=== PATIENT | female | born 1950 | race Caucasian/White ===

== ENCOUNTER 2019-04-12 12:43 | Outpatient (CLI) | payer OTHER ==
[~2019-04-12 12:43] MED LIST: DOCU-144 PO; ENAL10TA75 PO; OMEP40CA PO
== END 2019-04-13 20:17 | disposition home or self-care (01) ==
LOC: SRD 12:43
PROVIDERS: ATTEND Family Medicine
DX: R06.02 Shortness of breath (principal); I70.90 Unspecified atherosclerosis; R42 Dizziness and giddiness
CPT/HCPCS: 71046-TC

== ENCOUNTER 2020-09-20 09:34 | Outpatient (CLI) | payer OTHER ==
[2020-09-20 10:05] LABS: BILIRUBIN,URINE NEGATIVE (NEGATIVE); CLARITY/URINE CLEAR (CLEAR); COLOR,URINE YELLOW (YELLOW); GLUCOSE,URINE 2+ (NEGATIVE); KETONES,URINE NEGATIVE (NEGATIVE); LEUKOCYTE ESTERASE ,URINE NEGATIVE (NEGATIVE); NITRITE, URINE NEGATIVE (NEGATIVE); PH,URINE 5.5 (5.0-8.0); PROTEIN URINE NEGATIVE (NEGATIVE); UROBILINOGEN,URINE 0.2 (0.2-1.0)
[2020-09-20 10:07] LABS: BLOOD, URINE TRACE (NEGATIVE)
[2020-09-20 10:08] LABS: BASOPHILS # (AUTO) 0.1 K/uL (0.0-0.2); BASOPHILS % (AUTO) 0.7 % (0.0-2.0); EOSINOPHILS # (AUTO) 0.4 K/uL (0.0-0.4); EOSINOPHILS % (AUTO) 4.5 % (0.0-4.0); HEMATOCRIT 39.7 % (36-48); HEMOGLOBIN 13.5 g/dL (12.0-16.0); LYMPHOCYTES # (AUTO) 1.9 K/uL (1.0-5.5); MEAN CORPUSCULAR HEMOGLOBIN 32 pg (27-31); MEAN CORPUSCULAR HGB CONC 34 % (32-36); MEAN CORPUSCULAR VOLUME 94 fL (79.0-98.0); MONOCYTES # (AUTO) 0.5 K/uL (0.0-1.0); MONOCYTES % (AUTO) 6.4 % (1.7-9.3); NEUTROPHILS # (AUTO) 5.7 K/uL (1.8-7.7); NEUTROPHILS % (AUTO) 66.4 % (40.0-70.0); PLATELET COUNT (AUTO) 269 K/uL (130-430); RED BLOOD CELL COUNT(AUTO) 4.25 MIL/uL (4.2-6.2); RED CELL DISTRIBUTION WIDTH 13.9 % (9.0-15.0); WHITE BLOOD COUNT (AUTO) 8.6 K/uL (4.8-10.8)
[2020-09-20 10:36] LABS: BACTERIA,URINE FEW /HPF (None Seen); WBC,URINE 0-3 /HPF (0-3)
[2020-09-20 10:46] LABS: ALBUMIN 3.3 g/dL (3.4-4.8); CALCIUM 8.9 mg/dL (8.4-11.0); CREATININE 1.09 mg/dL (0.55-1.30); FREE T4 (FREE THYROXINE) 0.7 ng/dL (0.6-1.6); POTASSIUM 4.4 mmol/L (3.5-5.1); THYROID STIMULATING HORMONE 2.47 uIu/mL (0.34-4.82)
[2020-09-21 22:26] LABS: BILIRUBIN,URINE NEGATIVE (NEGATIVE); BLOOD, URINE NEGATIVE (NEGATIVE); CLARITY/URINE CLEAR (CLEAR); COLOR,URINE YELLOW (YELLOW); GLUCOSE,URINE 3+ (NEGATIVE); KETONES,URINE NEGATIVE (NEGATIVE); LEUKOCYTE ESTERASE ,URINE NEGATIVE (NEGATIVE); NITRITE, URINE NEGATIVE (NEGATIVE); PROTEIN URINE NEGATIVE (NEGATIVE); UROBILINOGEN,URINE 0.2 (0.2-1.0)
== END 2020-09-20 19:51 | disposition home or self-care (01) ==
LOC: SLB 09:34
PROVIDERS: ATTEND Family Medicine
DX: Z12.11 Encounter for screening for malignant neoplasm of colon (principal); Z00.00 Encounter for general adult medical examination without abnormal findings
CPT/HCPCS: 36415; 80053; 80061; 81000; 81003; 82272; 83036; 84439; 84443; 85025

== ENCOUNTER 2020-12-21 07:00 | Outpatient (CLI) | payer OTHER ==
[2020-12-21 06:21] LABS: BILIRUBIN,URINE NEGATIVE (NEGATIVE); BLOOD, URINE NEGATIVE (NEGATIVE); CLARITY/URINE CLEAR (CLEAR); COLOR,URINE YELLOW (YELLOW); GLUCOSE,URINE 3+ (NEGATIVE); KETONES,URINE NEGATIVE (NEGATIVE); LEUKOCYTE ESTERASE ,URINE NEGATIVE (NEGATIVE); NITRITE, URINE NEGATIVE (NEGATIVE); PROTEIN URINE NEGATIVE (NEGATIVE); UROBILINOGEN,URINE 0.2 (0.2-1.0)
[2020-12-21 08:02] LABS: ALBUMIN 3.7 g/dL (3.4-4.8); CALCIUM 9.5 mg/dL (8.4-11.0); CREATININE 1.21 mg/dL (0.55-1.30); TOTAL BILIRUBIN 0.5 mg/dL (0.0-1.0)
== END 2020-12-21 22:00 | disposition home or self-care (01) ==
LOC: SLB 07:00
PROVIDERS: ATTEND Family Medicine
DX: E11.9 Type 2 diabetes mellitus without complications (principal)
CPT/HCPCS: 36415; 80053; 80061; 81003; 82043; 82570; 83036

== ENCOUNTER → 2021-04-16 | Outpatient (CLI) | payer OTHER ==
[2021-04-17 07:40] LABS: BILIRUBIN,URINE NEGATIVE (NEGATIVE); BLOOD, URINE NEGATIVE (NEGATIVE); CLARITY/URINE CLEAR (CLEAR); COLOR,URINE YELLOW (YELLOW); GLUCOSE,URINE 2+ (NEGATIVE); KETONES,URINE NEGATIVE (NEGATIVE); LEUKOCYTE ESTERASE ,URINE 2+ (NEGATIVE); NITRITE, URINE NEGATIVE (NEGATIVE); PROTEIN URINE NEGATIVE (NEGATIVE); UROBILINOGEN,URINE 0.2 (0.2-1.0)
[2021-04-17 08:06] LABS: ALBUMIN 3.3 g/dL (3.4-4.8); CALCIUM 9.1 mg/dL (8.4-11.0); CREATININE 1.23 mg/dL (0.55-1.30); POTASSIUM 4.4 mmol/L (3.5-5.1); TOTAL BILIRUBIN 0.6 mg/dL (0.0-1.0)
[2021-04-17 09:21] LABS: BACTERIA,URINE FEW /HPF (None Seen); MUCUS,URINE 1+ /LPF (None Seen); RBC,URINE 0-3 /HPF (0-3)
== END | disposition home or self-care (01) ==
LOC: SLB 20:37
PROVIDERS: ATTEND Family Medicine
DX: E11.9 Type 2 diabetes mellitus without complications (principal)
CPT/HCPCS: 36415; 80053; 80061; 81000; 82043; 82570; 83036

== ENCOUNTER 2021-07-22 08:35 | Outpatient (CLI) | payer OTHER ==
[2021-07-22 10:09] LABS: BILIRUBIN,URINE NEGATIVE (NEGATIVE); BLOOD, URINE NEGATIVE (NEGATIVE); CLARITY/URINE CLEAR (CLEAR); COLOR,URINE YELLOW (YELLOW); GLUCOSE,URINE 3+ (NEGATIVE); KETONES,URINE NEGATIVE (NEGATIVE); LEUKOCYTE ESTERASE ,URINE 1+ (NEGATIVE); NITRITE, URINE NEGATIVE (NEGATIVE); PH,URINE 5.5 (5.0-8.0); PROTEIN URINE NEGATIVE (NEGATIVE); UROBILINOGEN,URINE 0.2 (0.2-1.0)
[2021-07-22 10:18] LABS: ALBUMIN 3.5 g/dL (3.4-4.8); CALCIUM 8.7 mg/dL (8.4-11.0); CREATININE 1.11 mg/dL (0.55-1.30); POTASSIUM 3.6 mmol/L (3.5-5.1)
[2021-07-22 11:07] LABS: RBC,URINE 0-3 /HPF (0-3)
[2021-07-22 11:08] LABS: BACTERIA,URINE FEW /HPF (None Seen); MUCUS,URINE 1+ /LPF (None Seen)
== END 2021-07-22 20:34 | disposition home or self-care (01) ==
LOC: SLB 08:35
PROVIDERS: ATTEND Family Medicine
DX: E11.9 Type 2 diabetes mellitus without complications (principal)
CPT/HCPCS: 36415; 80053; 80061; 81000; 82043; 82570; 83036

== ENCOUNTER → 2022-02-28 | Day surgery (SDC) | payer OTHER ==
[~2022-02-28] VITALS: Ht 170.2 cm; Wt 120.7 kg
[~2022-02-28] MED LIST changes: +*HEPARIN PER PHARMACY XX ONE; +BUPIVACAINE /EPINEPHRINE/PF 0.5% 30 ML VIAL INJ ONE; +HYDROmorphone 1 MG/ML INJ. CARTRIDGE IVP PRN; +LABETALOL 100 MG/ 20ML VIAL IVP PRN; +LIDOCAINE 1% 10 MG/ML, 20 ML MDV ONE; +LR 1,000 ML IV.SOLN IV ONE; +LR 500 ML IV ONE; +MEPERIDINE HCL/PF 25 MG/ML DISP.SYRIN IVP PRN; +METOCLOPRAMIDE HCL 10 MG/2 ML VIAL IVP PRN; +MIDAZOLAM HCL 5 MG/ML VIAL (VERSED) IV ONE; +NS 100 ML BAG ONE; +NS IRRIG SOLN 1000 ML IR ONE; +ceFAZolin SODIUM 1 GM VIAL ONE; +ceFAZolin SODIUM 2 GM in D5W 100 ML IV ONE; +ceFAZolin SODIUM 2 GM in D5W 50 ML IV ONE; +fentaNYL CITRATE 250 MCG/5 ML AMP ONE; +hydrALAZINE HCL 20 MG/ML VIAL IVP PRN
[2022-02-28 12:30] VITALS: BP_SYST 172
== END | disposition home or self-care (01) ==
LOC: SDS 08:17
PROVIDERS: ATTEND Surgery
DX: C50.911 Malignant neoplasm of unspecified site of right female breast (principal); C50.112 Malignant neoplasm of central portion of left female breast; I10 Essential (primary) hypertension; E11.9 Type 2 diabetes mellitus without complications; E78.5 Hyperlipidemia, unspecified; Z88.1 Allergy status to other antibiotic agents; Z88.5 Allergy status to narcotic agent; Z96.659 Presence of unspecified artificial knee joint; Z79.899 Other long term (current) drug therapy; Z20.822 Contact with and (suspected) exposure to COVID-19
CPT/HCPCS: 36561; 82962; 36415; 77001; 87426; 71045; J3490; J0690; J2001; J2250; J3010; J7060; J7120; C1788; 76000

== ENCOUNTER 2022-05-22 12:40 | Inpatient (IN) | payer OTHER ==
[~2022-05-22] VITALS: Ht 172.7 cm; Wt 119.3 kg
[~2022-05-22 12:40] MED LIST changes: -*HEPARIN PER PHARMACY XX ONE; -BUPIVACAINE /EPINEPHRINE/PF 0.5% 30 ML VIAL INJ ONE; -HYDROmorphone 1 MG/ML INJ. CARTRIDGE IVP PRN; -LABETALOL 100 MG/ 20ML VIAL IVP PRN; -LIDOCAINE 1% 10 MG/ML, 20 ML MDV ONE; -LR 1,000 ML IV.SOLN IV ONE; -LR 500 ML IV ONE; -MEPERIDINE HCL/PF 25 MG/ML DISP.SYRIN IVP PRN; -METOCLOPRAMIDE HCL 10 MG/2 ML VIAL IVP PRN; -MIDAZOLAM HCL 5 MG/ML VIAL (VERSED) IV ONE; -NS 100 ML BAG ONE; -NS IRRIG SOLN 1000 ML IR ONE; -ceFAZolin SODIUM 1 GM VIAL ONE; -ceFAZolin SODIUM 2 GM in D5W 100 ML IV ONE; -ceFAZolin SODIUM 2 GM in D5W 50 ML IV ONE; -fentaNYL CITRATE 250 MCG/5 ML AMP ONE; -hydrALAZINE HCL 20 MG/ML VIAL IVP PRN
[2022-05-22 15:45] VITALS: BP_SYST 113
--- NOTE | 2022-05-22 15:45 | NUR ---
Admission note: patient is awake alert x4. Picked up in the main lobby and transferred via wheelchair. No pain or discomfort at this time. Assisted to bed and changed patient's gown. Bed in the lowest position and side rails x2 up. Call light in reach. Room oriented. Admission assessment and data are done. Vital signs checked. Will continue to monitor.
[2022-05-22 15:47] VITALS: BP_SYST 113
[2022-05-22] MEDS: LR 1,000 ML IV SCH ×2 (16:50→22:34)
[2022-05-22 16:51] LABS: BASOPHILS # (AUTO) 0.1 K/uL (0.0-0.2); BASOPHILS % (AUTO) 0.6 % (0.0-2.0); EOSINOPHILS % (AUTO) 0.2 % (0.0-4.0); HEMATOCRIT 34.4 % (36-48); HEMOGLOBIN 11.4 g/dL (12.0-16.0); LYMPHOCYTES # (AUTO) 1.2 K/uL (1.0-5.5); LYMPHOCYTES % (AUTO) 8.8 % (20.5-51.5); MEAN CORPUSCULAR HEMOGLOBIN 31 pg (27-31); MEAN CORPUSCULAR HGB CONC 33 % (32-36); MEAN CORPUSCULAR VOLUME 94 fL (79.0-98.0); MONOCYTES # (AUTO) 1.2 K/uL (0.0-1.0); MONOCYTES % (AUTO) 8.8 % (1.7-9.3); NEUTROPHILS # (AUTO) 11.2 K/uL (1.8-7.7); NEUTROPHILS % (AUTO) 81.6 % (40.0-70.0); PLATELET COUNT (AUTO) 275 K/uL (130-430); RED BLOOD CELL COUNT(AUTO) 3.67 MIL/uL (4.2-6.2); RED CELL DISTRIBUTION WIDTH 16.3 % (9.0-15.0); WHITE BLOOD COUNT (AUTO) 13.7 K/uL (4.8-10.8)
[2022-05-22 16:59] LABS: CREATININE 1.15 mg/dL (0.55-1.30)
--- NOTE | 2022-05-22 17:00 | NUR ---
Note: consent of the procedure signed by patient. stated surgeon already explained the procedure to her. patient is awake and alert x4.
[2022-05-22 17:04] LABS: ALBUMIN 3.1 g/dL (3.4-4.8); TOTAL BILIRUBIN 0.6 mg/dL (0.0-1.0)
[2022-05-22] MEDS: CLINDAMYCIN 300 MG/50 ML D5W 50 ML IV SCH (17:19)
--- NOTE | 2022-05-22 17:31 | NUR ---
Note: patient is transferred to OR via hospital bed. No pain or discomfort at this time.
[2022-05-22] MEDS ORDERED: LIDOCAINE/EPI MPF 1%1:200000 30 ML VIAL ONE (17:41)
[2022-05-22] MEDS ORDERED: MIDAZOLAM HCL 2 MG/2 ML VIAL (VERSED) ONE (17:41)
[2022-05-22] MEDS ORDERED: KETAMINE HCL 500 MG/10 ML VIAL ONE (17:41)
[2022-05-22] MEDS ORDERED: PROPOFOL 200MG/ 20ML VIAL (DIPRIVAN) IV ONE (17:41)
[2022-05-22] MEDS ORDERED: LR 1,000 ML IV.SOLN IV ONE (17:41)
[2022-05-22] MEDS ORDERED: fentaNYL CITRATE/PF 100 MCG/2 ML AMP ONE (17:41)
[2022-05-22] MEDS ORDERED: NS IRRIG SOLN 1000 ML IR ONE (17:41)
[2022-05-22] MEDS ORDERED: MAGN400T10 PO (18:08)
[2022-05-22] MEDS ORDERED: METF-380 PO (18:08)
[2022-05-22] MEDS ORDERED: ASCO500T19 PO (18:08)
[2022-05-22] MEDS ORDERED: DAPA10TA PO (18:08)
[2022-05-22] MEDS ORDERED: VITD400 PO (18:08)
[2022-05-22] MEDS ORDERED: CALC200T47 PO (18:08)
[2022-05-22] MEDS ORDERED: LIP10 PO (18:08)
[2022-05-22] MEDS ORDERED: METOCLOPRAMIDE HCL 10 MG/2 ML VIAL IVP PRN (18:15)
[2022-05-22] MEDS ORDERED: ONDANSETRON HCL 4 MG/2 ML VIAL IVP PRN (18:15)
[2022-05-22] MEDS ORDERED: HYDROmorphone 1 MG/ML INJ. CARTRIDGE IVP PRN (18:15)
[2022-05-22] MEDS ORDERED: traMADol HCL HCL 50 MG TABLET (ULTRAM) PO PRN (18:30)
[2022-05-22] MEDS ORDERED: NALOXONE HCL 0.4 MG/ML AMP (NARCAN) IVP PRN (18:30)
[2022-05-22] MEDS ORDERED: HYDROcodone/ACETAMIN 5-325 MG TAB (NORCO/ VICODIN) PO PRN (18:30)
--- NOTE | 2022-05-22 19:20 | NUR ---
Back from PACU Pt back from PACU, received report from SHAE Stratton. Pt AAOx4, VSS. LR infusing L.FA 22G clear and patent. Hua SCDs on. Daughter at bedside. Call light within reach. Bed low, locked, siderails up x2. To monitor.
[2022-05-22 19:25] VITALS: BP_SYST 102
[2022-05-22 19:40] VITALS: BP_SYST 106
--- NOTE | 2022-05-22 20:00 | NUR ---
Ambulated to bathroom Assisted pt to ambulate to the bathroom, steady gait and pt voided. Provided pt with 4x4 gauze, abd pad, bottle of NS and irrigation syringe for perianal care and pt changed her own dressing. Noted small serousangenous drainage. Pt assisted back to bed.
--- NOTE | 2022-05-22 20:12 | NUR ---
Pain/Incentive spirometer RT educating pt to use I.S. at bedside. Pt doing 1500ml. Tolerated well. Pt medicated for mild pain with Ultram 50mg PO as needed. VSS. Call light within reach. MRSA swab collected and sent to lab.
[2022-05-22] MEDS: DOCUSATE SODIUM 100 MG CAPSULE PO SCH (20:21)
[2022-05-22] MEDS: lisinopriL 20 MG TABLET PO SCH (20:22)
[2022-05-22] MEDS ORDERED: ENALAPRIL MALEATE Non-Formular 5 MG TABLET PO SCH (21:00)
[2022-05-22 23:59] VITALS: BP_SYST 106
[2022-05-23] VITALS: BP_SYST 111
[2022-05-23] MEDS: CLINDAMYCIN 300 MG/50 ML D5W 50 ML IV SCH ×3 (00:43→12:13)
--- NOTE | 2022-05-23 06:23 | NUR ---
Closing notes Pt asleep, easily awakens, no s/s distress noted. Pt denies pain. Sofya drain x2 to periarea with minimal drainage. IVF infusing at ordered rate L. FA 22G clear and patent. Bed low, locked, siderails up x2a. Safety maintained. To endorse to AM nurse.
[2022-05-23 07:51] LABS: BASOPHILS # (AUTO) 0.1 K/uL (0.0-0.2); BASOPHILS % (AUTO) 0.7 % (0.0-2.0); EOSINOPHILS % (AUTO) 0.2 % (0.0-4.0); HEMATOCRIT 32.5 % (36-48); HEMOGLOBIN 10.8 g/dL (12.0-16.0); LYMPHOCYTES # (AUTO) 0.8 K/uL (1.0-5.5); LYMPHOCYTES % (AUTO) 7.5 % (20.5-51.5); MEAN CORPUSCULAR HEMOGLOBIN 31 pg (27-31); MEAN CORPUSCULAR HGB CONC 33 % (32-36); MEAN CORPUSCULAR VOLUME 94 fL (79.0-98.0); MONOCYTES # (AUTO) 0.8 K/uL (0.0-1.0); MONOCYTES % (AUTO) 7.4 % (1.7-9.3); NEUTROPHILS # (AUTO) 8.8 K/uL (1.8-7.7); NEUTROPHILS % (AUTO) 84.2 % (40.0-70.0); PLATELET COUNT (AUTO) 254 K/uL (130-430); RED BLOOD CELL COUNT(AUTO) 3.46 MIL/uL (4.2-6.2); RED CELL DISTRIBUTION WIDTH 16.2 % (9.0-15.0); WHITE BLOOD COUNT (AUTO) 10.5 K/uL (4.8-10.8)
[2022-05-23 08:00] VITALS: BP_SYST 93
--- NOTE | 2022-05-23 08:00 | NUR ---
Initial note: report received from Viv KAUFMAN warehouse worker 2nd shift nurse. Patient is awake alert x4. Call light in reach. Bed in the lowest position and side rails x2 up. No pain or discomfort at this time. Will continue patient care.
[2022-05-23] MEDS ORDERED: OMEPRAZOLE Non-Formulary 20 MG CAPSULE.DR PO SCH (09:00)
[2022-05-23] MEDS ORDERED: MAGNESIUM OXIDE 400 MG TABLET PO SCH (09:00)
[2022-05-23] MEDS: lisinopriL 20 MG TABLET PO SCH (09:00)
[2022-05-23] MEDS: DOCUSATE SODIUM 100 MG CAPSULE PO SCH (09:00)
[2022-05-23] MEDS ORDERED: PATIENT'S OWN TABLET PO SCH (09:00)
[2022-05-23] MEDS ORDERED: PANTOPRAZOLE SODIUM 40 MG TAB PO SCH (09:00)
--- NOTE | 2022-05-23 09:35 | NUR ---
Home Appliance Washing Machine Mechanic re: homelessness In to see patient this morning. The patient is a 71 year old female who is alert and oriented. I introduced myself and she was in agreement to speaking with me. Per patient, she resides in a single-story home with her family. She was using no assistive devices and was independent with her ADLs. The patient is still able to drive ands recently retired. The patient states her family is her support in place. She does have a Power of Senior Controls Analyst, in which her , Hollis Del Rio ([phone]) serves as her POA. Her PCP is Dr. Benson in [place]. The discharge plan is to return home with her family. The patient was advised that prior to discharge, she will be assessed for appropriate needs and services. Per patient, there are no anticipated discharge needs. The patient is in agreement to the discharge plan. At time of discharge, the patient states her family will transport her home. Prior to leaving the room, the patient advised me that she was recently diagnosed with right-sided breast cancer. She is currently receiving chemotherapy. Her oncologist is Dr. Bañuelos in [place].
[2022-05-23 11:52] VITALS: BP_SYST 103
[2022-05-23] MEDS: LR 1,000 ML IV SCH (12:13)
[2022-05-23 13:34] VITALS: BP_SYST 103
--- NOTE | 2022-05-23 14:14 | NUR ---
Note: discharge instruction given. Instructed to follow up with MD as scheduled. IV heplock removed. No pain or discomfort at this time.
== END 2022-05-23 14:45 | disposition home or self-care (01) | DRG 603 ==
LOC: SMU 15:18
PROVIDERS: ADMIT Surgery; ATTEND Surgery
PROC: 0Y910ZX Drainage of Left Buttock, Open Approach, Diagnostic (ICD-10-PCS; principal; 2022-05-22 17:41)
DX: L02.31 Cutaneous abscess of buttock (principal); E11.9 Type 2 diabetes mellitus without complications; I10 Essential (primary) hypertension; Z85.3 Personal history of malignant neoplasm of breast; Z79.899 Other long term (current) drug therapy
CPT/HCPCS: 36415; 80053; 85025; 87070-TC; 87075-TC; 87081; 94010; J2704; J3010; J3465; J3490; J7120

== ENCOUNTER 2022-07-10 06:09 | Day surgery (SDC) | payer OTHER ==
[~2022-07-10] VITALS: Ht 172.7 cm; Wt 120.7 kg
[2022-07-10] VITALS (7 sets, daily range): BP systolic 114–133
[~2022-07-10 06:09] MED LIST changes: +ASCO500T19 PO; +CALC200T47 PO; +DAPA10TA PO; +LIP10 PO; +MAGN400T10 PO; +METF-380 PO; +VITD400 PO
[2022-07-10] MEDS ORDERED: CEFAZOLIN SOD 2 GM in D5W 50 ML IV ONE (07:00)
[2022-07-10] MEDS ORDERED: DEXAMETHASONE SOD PHOSPHATE 4 MG/ML VIAL ONE (12:30)
[2022-07-10] MEDS ORDERED: NS 1000 ML IV.SOLN IV ONE (12:30)
[2022-07-10] MEDS ORDERED: PROPOFOL 200MG/ 20ML VIAL (DIPRIVAN) IV ONE (12:30)
[2022-07-10] MEDS ORDERED: WATER FOR IRRIGATION,STERILE 1,000 ML IRRIG.SOLN IR ONE (12:30)
[2022-07-10] MEDS ORDERED: LR 1,000 ML IV.SOLN IV ONE (12:30)
[2022-07-10] MEDS ORDERED: SEVOFLURANE 15 MIN GAS INH ONE (12:30)
[2022-07-10] MEDS ORDERED: KETOROLAC TROMETHAMINE 30 MG VIAL ONE (12:30)
[2022-07-10] MEDS ORDERED: ACETAMINOPHEN I.V. 1000 MG 100 ML IV ONE (15:54)
[2022-07-10] MEDS ORDERED: ONDANSETRON HCL 4 MG/2 ML VIAL IVP PRN ×2 (16:00→17:30)
[2022-07-10] MEDS ORDERED: METOCLOPRAMIDE HCL 10 MG/2 ML VIAL IVP PRN (16:00)
[2022-07-10] MEDS ORDERED: fentaNYL CITRATE/PF 100 MCG/2 ML AMP IVP PRN ×2 (16:00)
[2022-07-10] MEDS ORDERED: HYDROmorphone 1 MG/ML INJ. CARTRIDGE IVP PRN (17:30)
[2022-07-10] MEDS ORDERED: LR 1,000 ML IV SCH (17:30)
[2022-07-10] MEDS ORDERED: fentaNYL CITRATE/PF 100 MCG/2 ML AMP ONE (18:09)
--- NOTE | 2022-07-10 19:45 | NUR ---
INITIAL ASSESSMENT NOTES; endorsed by day shift S/P rt. and left mastectomy with 2 J gabriele. will do routine admission. pt. family at bedside. bed alarm on. call light within reach.
--- NOTE | 2022-07-10 20:30 | NUR ---
NOTES: pt. c/o post op pain, medicated with IV Dilaudid and IV Zofran for nausea. chest dressing intact with 2 reynaldo dhaliwal, drained left side with serous bloody drainage. on room air, denies any shortness of breath. IV infusing via left hand. pure wick in place. sequentials on. pt. and son at bedside. pt. needs attended.
[2022-07-10] MEDS ORDERED: DOCUSATE SODIUM 100 MG CAPSULE PO SCH (21:00)
[2022-07-10] MEDS ORDERED: ENALAPRIL MALEATE Non-Formular 5 MG TABLET PO SCH (21:00)
[2022-07-10] MEDS: lisinopriL 20 MG TABLET PO SCH (22:14)
--- NOTE | 2022-07-10 22:15 | NUR ---
NOTES: due po meds taken. pt. noted relief from pain, was able to sleep for a bit. call light at bedside.
[2022-07-11 00:10] VITALS: BP_SYST 124
--- NOTE | 2022-07-11 00:15 | NUR ---
NOTES: pt. been sleeping on and off. call light within reach. IS at bedside.
--- NOTE | 2022-07-11 02:00 | NUR ---
NOTES: pt. called and wants to use BSC, assisted by COPIER FIELD SERVICE TECHNICIAN and voided. back to bed and repositioned self.
--- NOTE | 2022-07-11 06:10 | NUR ---
NOTES: pt. checked and wants pain pill instead of IV. will call
--- NOTE | 2022-07-11 06:42 | NUR ---
CLOSING NOTES; spoke with Dr. Smith and told him about the oral pain medication. will verify with pharmacist. J dhaliwal x 2 drain , l;eft side more than the right. deep breathing encouraged, for further care and assistance. will endorse to incoming shift.
[2022-07-11] MEDS: traMADol HCL HCL 50 MG TABLET (ULTRAM) PO PRN ×2 (07:00→10:33)
[2022-07-11 07:32] LABS: BASOPHILS % (AUTO) 0.3 % (0.0-2.0); EOSINOPHILS % (AUTO) 0.5 % (0.0-4.0); HEMATOCRIT 33.7 % (36-48); HEMOGLOBIN 11.1 g/dL (12.0-16.0); LYMPHOCYTES # (AUTO) 0.9 K/uL (1.0-5.5); LYMPHOCYTES % (AUTO) 10.2 % (20.5-51.5); MEAN CORPUSCULAR HEMOGLOBIN 32 pg (27-31); MEAN CORPUSCULAR HGB CONC 33 % (32-36); MEAN CORPUSCULAR VOLUME 96 fL (79.0-98.0); MONOCYTES # (AUTO) 0.7 K/uL (0.0-1.0); MONOCYTES % (AUTO) 7.7 % (1.7-9.3); NEUTROPHILS # (AUTO) 7.5 K/uL (1.8-7.7); NEUTROPHILS % (AUTO) 81.3 % (40.0-70.0); PLATELET COUNT (AUTO) 222 K/uL (130-430); RED CELL DISTRIBUTION WIDTH 16.6 % (9.0-15.0); WHITE BLOOD COUNT (AUTO) 9.2 K/uL (4.8-10.8)
[2022-07-11 07:40] VITALS: BP_SYST 127
[2022-07-11 07:49] LABS: ALBUMIN 3.2 g/dL (3.4-4.8); CALCIUM 8.3 mg/dL (8.4-11.0); CREATININE 1.09 mg/dL (0.55-1.30); TOTAL BILIRUBIN 1.3 mg/dL (0.0-1.0)
[2022-07-11] MEDS ORDERED: PANTOPRAZOLE SODIUM 40 MG TAB PO SCH (09:00)
[2022-07-11] MEDS ORDERED: OMEPRAZOLE Non-Formulary 20 MG CAPSULE.DR PO SCH (09:00)
[2022-07-11] MEDS ORDERED: MAGNESIUM OXIDE 400 MG TABLET PO SCH (09:00)
[2022-07-11] MEDS: lisinopriL 20 MG TABLET PO SCH (09:13)
--- NOTE | 2022-07-11 09:31 | NUR ---
Nurse Notes: Patient is asking for Metformin for DM type 2. Informed pharmacy and they explained that patient had contrast yesterday. Per Dr. Smith, who was in the patient's room, patient had Nuclear medicine, not IV contrast. Informed pharmacy and awaiting Metformin medication reconciliation/instructions from pharmacist.
[2022-07-11 12:00] VITALS: BP_SYST 110
[2022-07-11 12:27] VITALS: BP_SYST 110
== END 2022-07-11 12:40 | disposition home or self-care (01) ==
LOC: SDS 06:09 → SMU 06:10 → SDS 07-11 12:40
PROVIDERS: ATTEND Surgery
DX: C79.81 Secondary malignant neoplasm of breast (principal); C80.1 Malignant (primary) neoplasm, unspecified; R58 Hemorrhage, not elsewhere classified; I10 Essential (primary) hypertension; E11.9 Type 2 diabetes mellitus without complications; E78.5 Hyperlipidemia, unspecified; Z96.653 Presence of artificial knee joint, bilateral; Z79.899 Other long term (current) drug therapy
CPT/HCPCS: 87081; 19303; 38900; 38525; 38792; 80053; 82962; 85025; 36415; 93005; 82948; 88307; 88341; 88342; A9541; J0690; J1100; J1885; J2405; J2704; J3010; J1170; J7060; J7120; J7030; J0131; 78195; 88305

== ENCOUNTER 2023-02-27 06:29 | Day surgery (SDC) | payer OTHER ==
[~2023-02-27] VITALS: Ht 172.7 cm; Wt 127.6 kg
[~2023-02-27 06:29] MED LIST changes: -CALC200T47 PO; +CALC200T56 PO
[2023-02-27] MEDS ORDERED: ceFAZolin SODIUM 2 GM in D5W 50 ML IV ONE (07:00)
[2023-02-27 07:28] LABS: BASOPHILS % (AUTO) 0.8 % (0.0-2.0); EOSINOPHILS # (AUTO) 0.3 K/uL (0.0-0.4); EOSINOPHILS % (AUTO) 5.7 % (0.0-4.0); HEMATOCRIT 37.3 % (36-48); HEMOGLOBIN 12.7 g/dL (12.0-16.0); LYMPHOCYTES # (AUTO) 0.9 K/uL (1.0-5.5); LYMPHOCYTES % (AUTO) 15.6 % (20.5-51.5); MEAN CORPUSCULAR HEMOGLOBIN 31 pg (27-31); MEAN CORPUSCULAR HGB CONC 34 % (32-36); MEAN CORPUSCULAR VOLUME 93 fL (79.0-98.0); MONOCYTES # (AUTO) 0.6 K/uL (0.0-1.0); MONOCYTES % (AUTO) 9.9 % (1.7-9.3); PLATELET COUNT (AUTO) 240 K/uL (130-430); RED BLOOD CELL COUNT(AUTO) 4.03 MIL/uL (4.2-6.2); WHITE BLOOD COUNT (AUTO) 5.9 K/uL (4.8-10.8)
[2023-02-27 08:39] LABS: ALANINE AMINOTRANSFERASE 17 U/L (12-78); ALBUMIN 3.3 g/dL (3.4-4.8); ANION GAP 10 (5-15); ASPARTATE AMINOTRANSFERASE 14 U/L (10-37); CALCIUM 9.3 mg/dL (8.4-11.0); CARBON DIOXIDE 27 mmol/L (23-29); CHLORIDE 104 mmol/L (98-107); CREATININE 1.17 mg/dL (0.55-1.30); GLUCOSE 133 mg/dL (74-106); POTASSIUM 3.9 mmol/L (3.5-5.1); SODIUM SERUM 141 mmol/L (136-145); TOTAL BILIRUBIN 0.6 mg/dL (0.0-1.0); TOTAL PROTEIN, SERUM 6.8 g/dL (6.4-8.3); UREA NITROGEN, BLOOD 32 mg/dL (8-21)
[2023-02-27] MEDS ORDERED: PROPOFOL 200MG/ 20ML VIAL (DIPRIVAN) IV ONE (08:48)
[2023-02-27] MEDS ORDERED: DEXAMETHASONE SOD PHOSPHATE 4 MG/ML VIAL ONE (08:48)
[2023-02-27] MEDS ORDERED: ONDANSETRON HCL 4 MG/2 ML VIAL ONE (08:48)
[2023-02-27] MEDS ORDERED: MIDAZOLAM HCL/PF 2 MG/2 ML SYRINGE ONE (08:48)
[2023-02-27] MEDS ORDERED: ePHEDrine sulfate 50 MG/ML VIAL ONE (08:48)
[2023-02-27] MEDS ORDERED: fentaNYL CITRATE/PF 100 MCG/2 ML AMP ONE (08:48)
[2023-02-27] MEDS ORDERED: NS IRRIG SOLN 1000 ML IR ONE (08:48)
[2023-02-27] MEDS ORDERED: BUPIVACAINE /PF 0.25% 30 ML VIAL INJ ONE (08:48)
[2023-02-27] MEDS ORDERED: METOCLOPRAMIDE HCL 10 MG/2 ML VIAL ONE (08:48)
[2023-02-27] MEDS ORDERED: LIDOCAINE/EPI 1% 1:100000 20 ML VIAL ONE (08:48)
[2023-02-27 12:11] VITALS: BP_SYST 131; PULSE 78; RESP 18; TEMP 97.8; O2SAT 100
== END 2023-02-27 11:06 | disposition home or self-care (01) ==
LOC: SMU 06:29 → SDS 06:29
PROVIDERS: ATTEND Surgery
DX: T80.212A Local infection due to central venous catheter, initial encounter (principal); S20.359A Superficial foreign body of unspecified front wall of thorax, initial encounter; I10 Essential (primary) hypertension; E11.9 Type 2 diabetes mellitus without complications; E66.01 Morbid (severe) obesity due to excess calories; Z68.41 Body mass index [BMI] 40.0-44.9, adult; Y82.8 Other medical devices associated with adverse incidents; X58.XXXA Exposure to other specified factors, initial encounter; Y93.89 Activity, other specified; Y92.89 Other specified places as the place of occurrence of the external cause; Y99.8 Other external cause status
CPT/HCPCS: 87081; 10120; 71045; 36590; 80053; 82962; 85025; 36415; 88300; 88304; 93005; J3490; J1100; J2765; J3465; J2405; J2704; J3010; J7060

== ENCOUNTER 2023-11-08 09:18 | Inpatient (IN) | payer OTHER ==
[~2023-11-08] VITALS: Ht 172.7 cm; Wt 122.5 kg
[~2023-11-08 09:18] MED LIST changes: +ATOR-449 PO; -LIP10 PO
[2023-11-08 09:26] VITALS: BP_SYST 150; PULSE 75; RESP 18; TEMP 97.8; O2SAT 100
[2023-11-08] MEDS: MORPHINE 4 MG INJ. 4 MG/ML VIAL IM ONE (09:36)
[2023-11-08] MEDS ORDERED: MIDAZOLAM HCL 5 MG/5 ML VIAL IVP ONE (10:15)
[2023-11-08] MEDS: KETAMINE HCL 500 MG/10 ML VIAL IVP ONE (10:15)
[2023-11-08] MEDS ORDERED: MIDAZOLAM HCL 5 MG/ML VIAL (VERSED) IV ONE (10:55)
[2023-11-08] MEDS: MIDAZOLAM HCL 5 MG/5 ML VIAL IVP ONE (11:00)
[2023-11-08] MEDS ORDERED: DOCU-144 PO (11:56)
[2023-11-08] MEDS ORDERED: FEM2.5 PO (11:56)
[2023-11-08] MEDS ORDERED: METO25TA3 PO (11:56)
[2023-11-08 12:18] LABS: BASOPHILS # (AUTO) 0.1 K/uL (0.0-0.2); BASOPHILS % (AUTO) 0.5 % (0.0-2.0); EOSINOPHILS # (AUTO) 0.2 K/uL (0.0-0.4); EOSINOPHILS % (AUTO) 1.7 % (0.0-4.0); HEMATOCRIT 38.2 % (36-48); HEMOGLOBIN 12.9 g/dL (12.0-16.0); LYMPHOCYTES # (AUTO) 0.9 K/uL (1.0-5.5); MEAN CORPUSCULAR HEMOGLOBIN 32 pg (27-31); MEAN CORPUSCULAR HGB CONC 34 % (32-36); MEAN CORPUSCULAR VOLUME 94 fL (79.0-98.0); MONOCYTES # (AUTO) 0.7 K/uL (0.0-1.0); MONOCYTES % (AUTO) 6.3 % (1.7-9.3); NEUTROPHILS % (AUTO) 83.5 % (40.0-70.0); PLATELET COUNT (AUTO) 215 K/uL (130-430); RED BLOOD CELL COUNT(AUTO) 4.08 MIL/uL (4.2-6.2); WHITE BLOOD COUNT (AUTO) 10.8 K/uL (4.8-10.8)
[2023-11-08 12:25] LABS: INR 1.1 (0.8-1.2); PROTHROMBIN TIME 11.5 SECS (9.5-12.5)
[2023-11-08] MEDS ORDERED: BACITRACIN 1 GM OINT TP ONE (12:26)
[2023-11-08] MEDS: MIDAZOLAM HCL 5 MG/ML VIAL (VERSED) IV ONE (12:30)
[2023-11-08 12:45] LABS: ALANINE AMINOTRANSFERASE 21 U/L (12-78); ALBUMIN 3.3 g/dL (3.4-4.8); ANION GAP 10 (5-15); ASPARTATE AMINOTRANSFERASE 19 U/L (10-37); BILIRUBIN,DIRECT 0.1 mg/dL (0.0-0.3); CALCIUM 9.3 mg/dL (8.4-11.0); CARBON DIOXIDE 24 mmol/L (23-29); CHLORIDE 104 mmol/L (98-107); CREATINE KINASE, TOTAL 93 U/L (26-192); CREATININE 1.22 mg/dL (0.55-1.30); GLUCOSE 173 mg/dL (74-106); POTASSIUM 4.3 mmol/L (3.5-5.1); SODIUM SERUM 138 mmol/L (136-145); TOTAL BILIRUBIN 0.7 mg/dL (0.0-1.0); TOTAL PROTEIN, SERUM 6.6 g/dL (6.4-8.3); UREA NITROGEN, BLOOD 29 mg/dL (8-21)
[2023-11-08 13:58] VITALS: BP_SYST 128; PULSE 60; RESP 16; TEMP 97.5; O2SAT 93
[2023-11-08 13:59] VITALS: BP_SYST 128; PULSE 60; RESP 16; TEMP 97.5
[2023-11-08] MEDS: ONDANSETRON HCL 4 MG/2 ML VIAL IVP PRN (15:13)
[2023-11-08] MEDS ORDERED: HYDROcodone/ACETAMIN 10-325 MG TAB PO PRN (15:15)
[2023-11-08] MEDS ORDERED: HYDROcodone/ACETAMIN 5-325 MG TAB (NORCO/ VICODIN) PO PRN (15:15)
[2023-11-08] MEDS ORDERED: NALOXONE HCL 0.4 MG/ML AMP (NARCAN) IVP PRN ×2 (15:15)
[2023-11-08] MEDS ORDERED: LORazepam 2 MG/ML VIAL IVP PRN (15:15)
[2023-11-08 16:05] VITALS: BP_SYST 118; PULSE 56; RESP 14; TEMP 97.6; O2SAT 95
[2023-11-08 16:11] VITALS: O2SAT 93
[2023-11-08] MEDS ORDERED: traMADol HCL HCL 50 MG TABLET (ULTRAM) PO PRN (16:15)
[2023-11-08] MEDS: INSULIN REGULAR, HUMAN 100 UNITS/ML, 3 ML VIAL (humuLIN R) SUBCUT PRN (18:07)
[2023-11-08 20:10] VITALS: BP_SYST 112; PULSE 67; RESP 18; TEMP 98.8; O2SAT 96
[2023-11-08] MEDS ORDERED: ENALAPRIL MALEATE Non-Formular 5 MG TABLET PO SCH (21:00)
[2023-11-08] MEDS: ATORVASTATIN 10 MG TABLET PO SCH (21:14)
[2023-11-08] MEDS: lisinopriL 20 MG TABLET PO SCH (21:14)
[2023-11-08] MEDS: NORMAL SALINE 5 ML DISP.SYRIN IVF SCH (21:36)
[2023-11-08] MEDS: traMADol HCL HCL 50 MG TABLET (ULTRAM) PO PRN (22:22)
[2023-11-09 00:30] VITALS: BP_SYST 99; PULSE 56; RESP 18; TEMP 98.8; O2SAT 97
[2023-11-09] MEDS: ACETAMINOPHEN 325 MG TABLET PO PRN (02:06)
[2023-11-09 07:21] LABS: BASOPHILS % (AUTO) 0.4 % (0.0-2.0); EOSINOPHILS # (AUTO) 0.2 K/uL (0.0-0.4); EOSINOPHILS % (AUTO) 2.4 % (0.0-4.0); HEMOGLOBIN 11.9 g/dL (12.0-16.0); LYMPHOCYTES % (AUTO) 13.9 % (20.5-51.5); MEAN CORPUSCULAR HEMOGLOBIN 31 pg (27-31); MEAN CORPUSCULAR HGB CONC 33 % (32-36); MEAN CORPUSCULAR VOLUME 95 fL (79.0-98.0); MONOCYTES # (AUTO) 0.6 K/uL (0.0-1.0); MONOCYTES % (AUTO) 8.3 % (1.7-9.3); NEUTROPHILS # (AUTO) 5.3 K/uL (1.8-7.7); PLATELET COUNT (AUTO) 207 K/uL (130-430); RED CELL DISTRIBUTION WIDTH 15.2 % (9.0-15.0); WHITE BLOOD COUNT (AUTO) 7.1 K/uL (4.8-10.8)
[2023-11-09 08:08] LABS: ALANINE AMINOTRANSFERASE 18 U/L (12-78); ANION GAP 8 (5-15); CALCIUM 8.9 mg/dL (8.4-11.0); CARBON DIOXIDE 26 mmol/L (23-29); CHLORIDE 105 mmol/L (98-107); CREATININE 1.19 mg/dL (0.55-1.30); GLUCOSE 114 mg/dL (74-106); POTASSIUM 3.8 mmol/L (3.5-5.1); SODIUM SERUM 139 mmol/L (136-145); TOTAL BILIRUBIN 0.9 mg/dL (0.0-1.0); TOTAL PROTEIN, SERUM 5.6 g/dL (6.4-8.3); UREA NITROGEN, BLOOD 26 mg/dL (8-21)
[2023-11-09 08:40] LABS: ASPARTATE AMINOTRANSFERASE 15 U/L (10-37)
[2023-11-09 09:00] VITALS: O2SAT 98
[2023-11-09] MEDS ORDERED: CALCIUM CITRATE 200 MG TABLET PO SCH (09:00)
[2023-11-09] MEDS ORDERED: NON-FORMULARY MEDICATION (Dapagliflozin Propanediol (Farxiga) 10 MG) PO SCH (09:00)
[2023-11-09 09:10] VITALS: BP_SYST 121; PULSE 68; RESP 16; TEMP 98.1; O2SAT 98
[2023-11-09] MEDS: LETROZOLE 2.5 MG TABLET (FEMARA) PO SCH (09:50)
[2023-11-09] MEDS: ASCORBIC ACID 500 MG TABLET PO SCH (09:50)
[2023-11-09] MEDS: DOCUSATE SODIUM 100 MG CAPSULE PO SCH (09:50)
[2023-11-09] MEDS: CHOLECALCIFEROL (VITAMIN D-3) 400 UNIT TABLET PO SCH (09:51)
[2023-11-09] MEDS: METOPROLOL SUCCINATE 25 MG TAB.SR.24H (TOPROL XL) PO SCH (09:54)
[2023-11-09 12:10] VITALS: BP_SYST 108; PULSE 54; RESP 19; TEMP 98.6; O2SAT 94
[2023-11-09] MEDS ORDERED: TRAM50TA2 PO (12:50)
[2023-11-09 16:55] VITALS: BP_SYST 116; PULSE 66; RESP 18; TEMP 98; O2SAT 100
[2023-11-09] MEDS: IBUPROFEN 600 MG TABLET PO PRN (18:49)
[2023-11-09 20:00] VITALS: BP_SYST 92; PULSE 56; RESP 20; TEMP 98.2; O2SAT 95
[2023-11-10 06:35] LABS: BASOPHILS % (AUTO) 0.7 % (0.0-2.0); EOSINOPHILS # (AUTO) 0.3 K/uL (0.0-0.4); EOSINOPHILS % (AUTO) 5.1 % (0.0-4.0); HEMATOCRIT 36.1 % (36-48); HEMOGLOBIN 11.9 g/dL (12.0-16.0); LYMPHOCYTES # (AUTO) 1.2 K/uL (1.0-5.5); LYMPHOCYTES % (AUTO) 19.7 % (20.5-51.5); MEAN CORPUSCULAR HEMOGLOBIN 31 pg (27-31); MEAN CORPUSCULAR HGB CONC 33 % (32-36); MEAN CORPUSCULAR VOLUME 95 fL (79.0-98.0); MONOCYTES # (AUTO) 0.6 K/uL (0.0-1.0); MONOCYTES % (AUTO) 9.9 % (1.7-9.3); NEUTROPHILS # (AUTO) 3.9 K/uL (1.8-7.7); NEUTROPHILS % (AUTO) 64.6 % (40.0-70.0); PLATELET COUNT (AUTO) 211 K/uL (130-430); RED CELL DISTRIBUTION WIDTH 15.4 % (9.0-15.0)
[2023-11-10 06:56] LABS: ANION GAP 9 (5-15); CALCIUM 8.8 mg/dL (8.4-11.0); CARBON DIOXIDE 26 mmol/L (23-29); CHLORIDE 107 mmol/L (98-107); CREATININE 1.23 mg/dL (0.55-1.30); GLUCOSE 115 mg/dL (74-106); POTASSIUM 3.9 mmol/L (3.5-5.1); SODIUM SERUM 142 mmol/L (136-145); UREA NITROGEN, BLOOD 23 mg/dL (8-21)
[2023-11-10 08:00] VITALS: BP_SYST 135; PULSE 64; RESP 12; TEMP 97.5; O2SAT 97
[2023-11-10] MEDS: lisinopriL 20 MG TABLET PO SCH (08:41)
[2023-11-10 10:00] VITALS: O2SAT 97
[2023-11-10 12:00] VITALS: BP_SYST 116; PULSE 89; RESP 12; TEMP 97.7; O2SAT 100
[2023-11-10 12:28] VITALS: BP_SYST 113; BP_SYST 121; BP_SYST 136; PULSE 66; PULSE 67; PULSE 88
[2023-11-10 12:57] VITALS: BP_SYST 116; PULSE 89; RESP 12; TEMP 97.7; O2SAT 100
== END 2023-11-10 13:30 | disposition home or self-care (01) | DRG 563 ==
LOC: SED 09:18 → SMU 12:20 → STU 13:36
PROVIDERS: ADMIT Preventive Medicine Preventive Medicine/Occupational Environmental Medicine; ATTEND Preventive Medicine Preventive Medicine/Occupational Environmental Medicine
PROC: 2W3FX1Z Immobilization of Left Hand using Splint (ICD-10-PCS; principal; 2023-11-08)
PROC: 0PSJXZZ Reposition Left Radius, External Approach (ICD-10-PCS; 2023-11-08)
PROC: 0PSLXZZ Reposition Left Ulna, External Approach (ICD-10-PCS; 2023-11-08)
DX: S52.602A Unspecified fracture of lower end of left ulna, initial encounter for closed fracture (principal); S22.42XA Multiple fractures of ribs, left side, initial encounter for closed fracture; E44.0 Moderate protein-calorie malnutrition; Z68.41 Body mass index [BMI] 40.0-44.9, adult; I24.89 Other forms of acute ischemic heart disease; S52.502A Unspecified fracture of the lower end of left radius, initial encounter for closed fracture; I10 Essential (primary) hypertension; K59.00 Constipation, unspecified; E78.5 Hyperlipidemia, unspecified; E11.65 Type 2 diabetes mellitus with hyperglycemia; D64.9 Anemia, unspecified; I49.1 Atrial premature depolarization; Z79.4 Long term (current) use of insulin; Z79.899 Other long term (current) drug therapy; W18.39XA Other fall on same level, initial encounter; Y93.89 Activity, other specified; Y92.22 Religious institution as the place of occurrence of the external cause; Y99.8 Other external cause status
CPT/HCPCS: 36415; 71250-TC; 80048; 80053; 80076; 82550; 82948; 83735; 84484; 85025; 85610; 85730; 93005; 93306; 99285; G0378; J1815; J2250; J2270; J2405

== ENCOUNTER 2023-11-24 08:13 | Day surgery (SDC) | payer OTHER ==
[~2023-11-24] VITALS: Ht 172.7 cm; Wt 122.5 kg
[~2023-11-24 08:13] MED LIST changes: +FEM2.5 PO; -MAGN400T10 PO; +METO25TA3 PO; -OMEP40CA PO; +TRAM50TA2 PO
[2023-11-24] MEDS: ACETAMINOPHEN 500 MG TABLET ONE (09:40)
[2023-11-24] MEDS ORDERED: MIDAZOLAM HCL 2 MG/2 ML VIAL (VERSED) ONE (09:59)
[2023-11-24] MEDS ORDERED: NS IRRIG SOLN 1000 ML IR ONE (11:30)
[2023-11-24] MEDS ORDERED: LIDOCAINE HCL/PF 1% 10 ML AMPUL INJ ONE (11:30)
[2023-11-24] MEDS ORDERED: DEXAMETHASONE SOD PHOSPHATE 4 MG/ML VIAL ONE (11:30)
[2023-11-24] MEDS ORDERED: LR 1,000 ML IV.SOLN IV ONE (11:30)
[2023-11-24] MEDS ORDERED: PROPOFOL 200MG/ 20ML VIAL (DIPRIVAN) IV ONE (11:30)
[2023-11-24] MEDS ORDERED: KETOROLAC TROMETHAMINE 15 MG VIAL ONE (11:30)
[2023-11-24] MEDS ORDERED: NS 1000 ML IV.SOLN IV ONE (11:30)
[2023-11-24] MEDS ORDERED: BUPIVACAINE /PF 0.25% 10 ML VIAL INJ ONE (11:30)
[2023-11-24 13:53] VITALS: O2SAT 100
[2023-11-24 15:03] VITALS: BP_SYST 129; PULSE 62; RESP 14
[2023-11-25] MEDS ORDERED: ACETAMINOPHEN 500 MG TABLET PO ONE (07:00)
[2023-11-25] MEDS ORDERED: CEFAZOLIN SOD 2 GM in D5W 50 ML IV ONE (07:00)
== END 2023-11-24 14:55 | disposition home or self-care (01) ==
LOC: SMU 08:13 → SDS 08:13
PROVIDERS: ATTEND Orthopaedic Surgery Sports Medicine
DX: S52.572A Other intraarticular fracture of lower end of left radius, initial encounter for closed fracture (principal); I10 Essential (primary) hypertension; E66.3 Overweight; M25.532 Pain in left wrist; E11.9 Type 2 diabetes mellitus without complications; M19.90 Unspecified osteoarthritis, unspecified site; E78.5 Hyperlipidemia, unspecified; Z68.41 Body mass index [BMI] 40.0-44.9, adult; Z79.84 Long term (current) use of oral hypoglycemic drugs; Z79.899 Other long term (current) drug therapy; Z85.3 Personal history of malignant neoplasm of breast; Z83.3 Family history of diabetes mellitus; Z80.9 Family history of malignant neoplasm, unspecified; W19.XXXA Unspecified fall, initial encounter; Y93.89 Activity, other specified; Y92.89 Other specified places as the place of occurrence of the external cause; Y99.8 Other external cause status
CPT/HCPCS: 87081; 25609; 64415; 82948; J3490; J1100; J1885; J2003; J2250; J2704; J7120; J7030; C1713 ×7; 76000; J0690; J7060